=== PATIENT | female | born 1995 | race Caucasian/White ===

== ENCOUNTER 2017-07-30 13:00 | Emergency (ER) | payer OTHER ==
[~2017-07-30] VITALS: Ht 167.6 cm; Wt 79.1 kg
[2017-07-30 13:13] VITALS: Ht 167.6 cm; Wt 79.1 kg
[2017-07-30 14:36] VITALS: BP 120/69
== END 2017-07-30 14:36 | disposition home or self-care (01) ==
LOC: ED 13:00
DX: M54.5 Low back pain (principal)